=== PATIENT | male | born 1930 | race Caucasian/White ===

== ENCOUNTER 2019-02-23 11:03 | Inpatient (IN) | payer MEDICARE, OTHER ==
[~2019-02-23] VITALS: Ht 175.3 cm; Wt 75.3 kg
[2019-02-23] VITALS (21 sets, daily range): BP systolic 80–133; BP diastolic 32–75
--- NOTE | 2019-02-23 11:10 | NUR ---
ADAN, FROM [facility], CAME IN DUE TO ABNORMAL CHEST X-RAY AND FOR FURTHER EVAL. PATIENT RESPONSIVE TO STIMULI. ATTACHED TO THE LAYOUT TECHNICIAN. NEEDS ATTENDED. PATIENT WITH DELROY MIDLINE, DRESSING CHANGED VIA STERILE TECHNIQUE.
[2019-02-23] MEDS ORDERED: IV NS 0.9% 1,000 ML BAG IV ONE (11:30)
[2019-02-23 11:44] LABS: BASOPHILS # (AUTO) 0.1 /CMM (0.0-0.2); HEMOGLOBIN 7.7 g/dL (13.5-17.5); MEAN CORPUSCULAR HGB CONC 33 g/dl (31.0-36.0); MEAN CORPUSCULAR VOLUME 96 fL (80-96)
[2019-02-23 11:46] LABS: BASOPHILS % (AUTO) 0.7 % (0.0-2.0); EOSINOPHILS % (AUTO) 0.5 % (0.0-6.0); HEMATOCRIT 23 % (39-51); LYMPHOCYTES % (AUTO) 8.3 % (20.0-44.0); MONOCYTES # (AUTO) 1.7 /CMM (0.1-1.30); MONOCYTES % (AUTO) 14.4 % (2.0-12.0); NEUTROPHILS # (AUTO) 9.2 /CMM (1.8-8.9); NEUTROPHILS % (AUTO) 76.1 % (43.0-81.0); PLATELET COUNT (AUTO) 269 /CMM (150-450); RED BLOOD CELL COUNT(AUTO) 2.43 MIL/uL (4.5-6.0); WHITE BLOOD COUNT (AUTO) 12.1 K/uL (4.3-11.0)
[2019-02-23 12:03] LABS: CALCIUM, SERUM 8.1 mg/dL (8.5-10.1); CARBON DIOXIDE 23 mmol/L (21-32); CHLORIDE 99 mmol/L (98-107); CREATININE 2.9 mg/dL (0.6-1.3); GLUCOSE 149 mg/dL (74-106); POTASSIUM 5.1 mmol/L (3.5-5.1); SODIUM SERUM 134 mmol/L (136-145)
[2019-02-23 12:04] LABS: UREA NITROGEN, BLOOD 86 mg/dL (7-18)
[2019-02-23] MEDS ORDERED: DAPT350V IV (12:08)
[2019-02-23] MEDS ORDERED: CARV12.5 GT (12:08)
[2019-02-23] MEDS ORDERED: DOCU-141 GT (12:08)
[2019-02-23] MEDS ORDERED: ALBU2.5V13 IH ×2 (12:08)
[2019-02-23] MEDS ORDERED: DOXA2TAB GT (12:08)
[2019-02-23] MEDS ORDERED: DILT180C66 GT (12:08)
[2019-02-23] MEDS ORDERED: AZTR1VIA4 IJ (12:08)
[2019-02-23] MEDS ORDERED: CHLO473M3 MM (12:08)
[2019-02-23] MEDS ORDERED: ATOR10TA GT (12:08)
[2019-02-23] MEDS ORDERED: LIOT5TAB9 GT (12:09)
[2019-02-23] MEDS ORDERED: NA P133E RC (12:09)
[2019-02-23] MEDS ORDERED: LORA10TA7 GT (12:09)
[2019-02-23] MEDS ORDERED: MAGN400O6 GT (12:09)
[2019-02-23] MEDS ORDERED: DRON400T2 GT (12:09)
[2019-02-23] MEDS ORDERED: FERR325T23 GT (12:09)
[2019-02-23] MEDS ORDERED: LACT20SO4 GT (12:09)
[2019-02-23] MEDS ORDERED: BISA10SU61 RC (12:09)
[2019-02-23] MEDS ORDERED: FOLI1TAB16 GT (12:09)
[2019-02-23] MEDS ORDERED: INSU100V11 SQ (12:09)
[2019-02-23] MEDS ORDERED: LEVE500T9 GT (12:09)
[2019-02-23] MEDS ORDERED: MULT-447 PO (12:09)
[2019-02-23] MEDS ORDERED: LORA0.5T GT (12:09)
[2019-02-23] MEDS ORDERED: QUET25TA PO (12:13)
[2019-02-23] MEDS ORDERED: LANS15CA13 GT (12:13)
[2019-02-23] MEDS ORDERED: ASCO500T10 GT (12:13)
[2019-02-23] MEDS ORDERED: ZINC220C8 PO (12:13)
[2019-02-23] MEDS ORDERED: TRAM50TA2 PO (12:13)
[2019-02-23] MEDS ORDERED: FINA5TAB3 GT (12:13)
[2019-02-23] MEDS ORDERED: ONDA4TAB11 GT (12:13)
[2019-02-23] MEDS ORDERED: TYL2T GT ×2 (12:13)
[2019-02-23 12:16] LABS: ALANINE AMINOTRANSFERASE 28 U/L (12-78); ALBUMIN 1.8 g/dL (3.4-5.0); ALKALINE PHOSPHATASE 131 U/L (46-116); ASPARTATE AMINOTRANSFERASE 62 U/L (15-37); BILIRUBIN,DIRECT 0.1 mg/dL (0.0-0.2); BILIRUBIN,TOTAL 0.3 mg/dL (0.2-1.0); TOTAL PROTEIN, SERUM 7.9 g/dL (6.4-8.2)
[2019-02-23 12:40] LABS: B-TYPE NATRIURETIC PEPTIDE 44210 PG/ML (0-125)
--- NOTE | 2019-02-23 13:14 | NUR ---
[facility] PAGED
--- NOTE | 2019-02-23 13:16 | NUR ---
CALLED NURSING SUP FOR MEDSURG BED
--- NOTE | 2019-02-23 13:45 | NUR ---
DR. CELESTE AT BEDSIDE FOR EVAL.
[2019-02-23] MEDS ORDERED: ONDANSETRON HCL/PF 4 MG/2 ML VIAL IVP PRN (14:00)
[2019-02-23] MEDS ORDERED: LORAZEPAM 0.5 MG TABLET GT PRN (14:00)
[2019-02-23] MEDS ORDERED: ZOLPIDEM TARTRATE 5 MG TABLET PO PRN (14:00)
[2019-02-23] MEDS ORDERED: ALBUTEROL FS 2.5 MG/0.5 ML VIAL.NEB IH PRN (14:00)
[2019-02-23] MEDS ORDERED: ACETAMINOPHEN 325 MG TABLET PO PRN ×2 (14:00)
[2019-02-23] MEDS ORDERED: HYDROCODONE/APAP 5/325MG 1 EACH TABLET PO PRN (14:00)
[2019-02-23] MEDS ORDERED: ONDANSETRON 4 MG TAB.RAPDIS GT PRN (14:00)
[2019-02-23] MEDS ORDERED: MAG HYDROX/AL HYDROX/SIMETH 30 ML UDC PO PRN (14:00)
[2019-02-23] MEDS ORDERED: NA PHOS,M-B/NA PHOS,DI-BA 1 EA ENEMA RC PRN (14:00)
[2019-02-23] MEDS ORDERED: BISACODYL SUPP (10 MG) 10 MG/SUPP.RECT SUPP.RECT RC PRN (14:00)
[2019-02-23] MEDS ORDERED: MAGNESIUM HYDROXIDE 30 ML UDC PO PRN (14:00)
[2019-02-23] MEDS ORDERED: MAGNESIUM HYDROXIDE 30 ML UDC GT PRN (14:00)
[2019-02-23] MEDS ORDERED: TRAMADOL HCL 50 MG TABLET PO PRN (14:00)
[2019-02-23] MEDS ORDERED: Z GUARD REMEDY 2 OZ OINT TP PRN (14:00)
--- NOTE | 2019-02-23 14:02 | NUR ---
REPORT GIVEN TO KENAN BRAMBILA RN FOR SPENCER.
--- NOTE | 2019-02-23 14:29 | NUR ---
PATIENT TRANSFERRED TO MED SURG, PATIENT IN STABLE CONDITION. KEPT COMFORTABLE. ENDORSED TO CARYN ODEN FOR SPENCER.
[2019-02-23] MEDS ORDERED: LACTULOSE 10 G/15 ML UDC (PYXIS) GT PRN ×2 (14:30)
[2019-02-23] MEDS: CHLORHEXIDINE GLUCONATE 15 ML UDC MM SCH (15:24)
--- NOTE | 2019-02-23 15:39 | NUR ---
PER AKSHAT RUBIN AT 1535 CONSENT AND LABS PENDING FOR US GUIDED THORACENTESIS. WILL F/U TOMORROW
[2019-02-23] MEDS ORDERED: NUT.237L67 GT (15:40)
--- NOTE | 2019-02-23 15:40 | NUR ---
MS RN NOTES RECEIVED A CALL FROM [facility] SAID THAT THEY ARE UNABLE TO DO US GUIDED THORACENTESIS TODAY, THEY WILL DO IT TOMORROW . NOTIFIED DR SHEFFIELD MADE AWARE, SAID OK TO DO IT TOMORROW MORNING. CALLED JAMES LEDBETTER , PATIENTS PERSON TO NOTIFY ON FILE SAID TO CALL JACQUELYN JIMENEZ , PATIENT NEXT OF KIN TO GET CONSENT, CALLED JACQUELYN ,NO ANSWER, LEFT MESSAGE AND GAVE HOSPITAL CALL BACK NUMBER.
--- NOTE | 2019-02-23 16:30 | NUR ---
MS RN ADMITTING NOTES PATIENT ADMITTED FROM ER NONVERBAL, EYES OPEN BLINKS OCCASIONALLY, BLINKS EYES WHEN TOUCHED. ON T PIECE PORTEX #8, O2 AT LPM SATURATING AT 98-100%. GT TUBE INTACT. FUENTES CATHETER IN PLACE. RIGHT UPPER ARM MIDLINE PATENT AND INTACT. CARE RENDERED TO THE PATIENT. APPEARS COMFORTABLE. WILL CONTINUE TO MONITOR ACCORDINGLY.
[2019-02-23] MEDS: DRONEDARONE HYDROCHLORIDE 400 MG TABLET GT SCH (17:00)
[2019-02-23] MEDS: CARVEDILOL 12.5 MG TABLET GT SCH (17:00)
[2019-02-23] MEDS ORDERED: AZTREONAM 1 G in IV NS 0.9% 100 ML IV SCH (17:00)
[2019-02-23] MEDS: AZTREONAM 1 G in IV NS 0.9% 100 ML IV SCH (17:59)
--- NOTE | 2019-02-23 18:00 | NUR ---
MS RN NOTES HOLD multaq DUE TO DECREASE PULSE RATE.
[2019-02-23] MEDS: QUETIAPINE FUMARATE 25 MG TABLET PO SCH (18:02)
--- NOTE | 2019-02-23 18:07 | NUR ---
MS RN NOTES CYTOMEL NOT AVAILABLE ON THE FLOOR AT THIS TIME. SPOKE TO [facility] PHARMACIST WILL SEND OT TO THE FLOOR. WILL ADMINISTER ONCE AVAILABLE
[2019-02-23] MEDS: NEPRO 1,000 ML BOTTLE GT PRN (18:27)
--- NOTE | 2019-02-23 18:58 | NUR ---
MS RN NOTES CYTOMEL NOT AVAILABLE ON THE FLOOR AT THIS TIME YET. WILL ENDORSE TO NIGHT NURSE FOR ADMINISTRATION ONCE AVAILABLE.
[2019-02-23] MEDS: DAPTOMYCIN IV SCH (18:59)
[2019-02-23] MEDS: NS 0.9% IV SCH (18:59)
--- NOTE | 2019-02-23 19:00 | NUR ---
MS RN NOTES TUTU THOMAS PRESENT ON THE FLOOR NOTIFIED REGARDING PATIENT SHALLOW RESPIRATIONS, DR CELESTE SEEN PATIENT AT BEDSIDE TO EVALUATE. INSTRUCTED TO MONITOR RESPIRATORY RATE AND ENSURE PATIENT WAS BEING MONITORED ON CONTINUOUS PULSE OXIMETER 87-90%. ENDORSE TO NIGHT NURSE FOR CONTINUITY OF CARE.
--- NOTE | 2019-02-23 19:15 | NUR ---
RN NOTES: WALKED IN ROOM AND SAW PATIENT DESATURATING HIGH 70S LOW 80S. PT LOOKED VERY DIAPHORETIC. BLOOD SUGAR CHECKED. PT APPEARED TO BE IN AGONAL BREATHING ON T PIECE PORTEX #8 AT 15L. PT HAS DELROY MIDLINE. PT HAS GT NEPRO FEEDING STARTING AT 40ML/HR. BLOOD PRESSURE CHECKED AND WAS 81/35 HR 54. DECIDED TO CALL RAPID. Addendum: 02/23/19 at 2042 by STEVE RAINEY RN BP TRENDING DOWN 78/52 HR 42 Addendum: 02/23/19 at 2044 by STEVE RAINEY RN BLOOD SUGAR WAS 150. PLACED PATIENT ON COMBINATION WORKER FOR OBSERVATION.
--- NOTE | 2019-02-23 19:20 | NUR ---
RN NOTES: HONING MACHINE OPERATOR SEMIAUTOMATIC NURSE PRESENT, KERRY ; RTS AT BEDSIDE: CONNIE ROMAN VAHE, KEVIN. CALLED FOR BED FOR ICU TO BE TRANSFERRED. WARDROBE SPECIALIST, MARBELLA WONG. DR. CELESTE MADE AWARE AND OK TO TRANSFER AND TO CALL DR. RUSSELL FOR REST OF ORDERS.
[2019-02-23] MEDS ORDERED: IV NS 0.9% 500 ML IV ONE ×2 (19:30→20:00)
--- NOTE | 2019-02-23 19:30 | NUR ---
AKSHAT NOTES: PT TRANSFERRED TO ICU. Addendum: 02/24/19 at 0137 by STEVE RAINEY RN ICU NURSE AND RTS ACCOMPANIED PT TO TRANSFER WITH ARUNA.
[2019-02-23] MEDS ORDERED: NOREPINEPHRINE 4 MG/4 ML AMPUL IV ONE (19:49)
[2019-02-23] MEDS: ALBUTEROL FS 2.5 MG/0.5 ML VIAL.NEB IH SCH (19:53)
--- NOTE | 2019-02-23 19:59 | NUR ---
RT NOTE RAPID RESPONSE CALLED ON 3WEST DUE TO LOW SATURATION AND UNRESPONSIVE. USED AMBU BAG @ 100% TO TRANSFER PATIENT TO ICU. ABG DRAWN ON 100% AMBU BAG. @ 1940, PLACED PATIENT ON VENTILATOR WITH CURRENT SETTINGS OF AC 16, 500, 100%, NO PEEP DUE TO LOW BLOOD PRESSURE. PORTEX [address] AMBU BAG @ BEDSIDE. ALARMS ON AND AUDIBLE. VENT PLUGGED TO RED OUTLET. SX DONE, SMALL THICK YELLOW SECRETIONS NOTED. TRACH SECURED AND PATENT. WILL CONTINUE TO MONITOR. Addendum: 02/23/19 at 2005 by ANN HERNANDEZ RT Amended: Links added.
[2019-02-23] MEDS ORDERED: NOREPINEPHRINE 8 MG in IV D5W 500 ML IV PRN (20:00)
[2019-02-23] MEDS: LIOTHYRONINE SODIUM (5 MCG/TA 5 MCG TABLET GT SCH (20:26)
--- NOTE | 2019-02-23 20:30 | NUR ---
RN NOTES 19:35 PM - PATIENT CAME FROM [facility] TRANSFERRED VIA RAPID RESPONSE DUE TO LOW SATURATION, HYPOTENSION AND UNRESPONSIVE. TRANSFERRED USING AMBU BAG. ACCOMPANIED BY RT AND ICU CHARGE NURSE. PATIENT IS NON VERBAL WITH TRACH. CONNECTED TO FAMILY RESOURCE MANAGEMENT SPECIALIST REVEALS SB HR 44. NO ACUTE RESPIRATORY DISTRESS SATURATION 100% 1940 PM,- PATIENT WITH TRACH PORTEX # 8 PLACED PATIENT ON VENTILATOR BY RT WITH SETTINGS OF AC 16, 500, 100%, NO PEEP DUE TO LOW BLOOD PRESSURE. AMBU BAG @ BEDSIDE. SX W/ SMALL THICK YELLOW SECRETIONS. TRACH SECURED AND PATENT. IV SITE ON DELROY MIDLINE WITH ONGOING NS BOLUS INTACT AND PATENT. IV SITE ON LH STARTED GAUGE 20 WITH GOOD BLD. RETURN. WITH FUENTES CATH DRAINED WITH YELLOWISH COLOR URINE. OFF FROM THE FLOOR. KEPT PT CLEAN AND COMFORTABLE IN BED. WILL CONTINUE TO MONITOR.
[2019-02-23] MEDS: DILTIAZEM HCL CD 180 MG PO SCH (21:00)
--- NOTE | 2019-02-23 21:00 | NUR ---
RN NOTES LEVOPHED STOPPED , VSS WNL, WILL CONTINUE TO MONITOR.
--- NOTE | 2019-02-23 21:10 | NUR ---
RN NOTES RT CHANGE FIO2 TO 60%. PATIENT SATURATION REMAINED 100%
[2019-02-23] MEDS: LEVETIRACETAM SOL (5 ML) 100 MG/ML UDC GT SCH (21:24)
[2019-02-23] MEDS: ATORVASTATIN 10 MG TABLET GT SCH (21:24)
[2019-02-24] VITALS (47 sets, daily range): BP systolic 102–177; BP diastolic 35–137
[2019-02-24] MEDS: ALBUTEROL FS 2.5 MG/0.5 ML VIAL.NEB IH SCH ×4 (01:00→18:56)
[2019-02-24] MEDS: AZTREONAM 1 G in IV NS 0.9% 100 ML IV SCH ×3 (02:06→19:10)
[2019-02-24 04:49] LABS: BASOPHILS % (AUTO) 0.3 % (0.0-2.0); EOSINOPHILS % (AUTO) 0.1 % (0.0-6.0); HEMATOCRIT 24 % (39-51); HEMOGLOBIN 8.1 g/dL (13.5-17.5); LYMPHOCYTES # (AUTO) 1.3 /CMM (0.8-4.8); LYMPHOCYTES % (AUTO) 12.3 % (20.0-44.0); MEAN CORPUSCULAR HGB CONC 33 g/dl (31.0-36.0); MEAN CORPUSCULAR VOLUME 96 fL (80-96); MONOCYTES # (AUTO) 1.5 /CMM (0.1-1.30); MONOCYTES % (AUTO) 13.9 % (2.0-12.0); NEUTROPHILS % (AUTO) 73.4 % (43.0-81.0); PLATELET COUNT (AUTO) 260 /CMM (150-450); RED BLOOD CELL COUNT(AUTO) 2.53 MIL/uL (4.5-6.0); WHITE BLOOD COUNT (AUTO) 10.9 K/uL (4.3-11.0)
[2019-02-24] MEDS: DILTIAZEM HCL CD 180 MG PO SCH ×3 (05:00→20:58)
[2019-02-24 05:17] LABS: CALCIUM, SERUM 8.4 mg/dL (8.5-10.1); CARBON DIOXIDE 24 mmol/L (21-32); CHLORIDE 102 mmol/L (98-107); CHOLESTEROL 49 mg/dL (<200); GLUCOSE 96 mg/dL (74-106); HDL CHOLESTEROL 15 mg/dL (40-60); LDL 16 mg/dL (0-99); MAGNESIUM 2.8 mg/dL (1.8-2.4); PHOSPHORUS 5.9 mg/dL (2.5-4.9); POTASSIUM 5.5 mmol/L (3.5-5.1); SODIUM SERUM 136 mmol/L (136-145); TRIGLYCERIDES 144 mg/dL (30-150)
[2019-02-24 05:27] LABS: UREA NITROGEN, BLOOD 88 mg/dL (7-18)
--- NOTE | 2019-02-24 06:52 | NUR ---
RN NOTES PATIENT REMAINED IS MORE AWAKE, RESPONSE TO NAME, NON -VERBAL, ABLE TO MOVE UPPER EXT. NO SOB OR DISTRESS. TRACH AND VENT SETTING TOLERATED WELL ON AC 16 TV 500 FIO2 50% NO PEEP. SATURATION REMAINED 100%. AFEBRILE. VSS STABLE WITHOUT PRESSORS. NO FACIAL COMPLAINED OF PAIN. REMAINED SB LOWEST 44. ASYMPTOMATIC. IV SITE ON DELROY ML, LH G 20 AND INTACT AND PATENT AND FLUSHED WELL. GT LAMPED FOR NOW FOR POSS. THORACENTESIS TODAY. CONSENT DONE FOR THORACENTESIS. FUENTES CATH DRAINED WITH YELLOW COLOR URINE. OFF FROM THE FLOOR. KEPT PT CLEAN AND DRY. TURN AND REPOSITION Q2H AND PRN. OFFLOADED EXT WITH PILLOWS. ENDORSED CONTINUITY OF CARE TO AM NURSE.
--- NOTE | 2019-02-24 07:30 | NUR ---
PROOF READER INITIAL NOTE RECEIVED PATIENT NON-VERBAL OPENS EYES. VENT DEPENDENT. NO S/S OF PAIN OR DISCOMFORT. NO RESPIRATORY DISTRESS NOTED, WITH VENT SETTINGS AC 16, TV 500, FIO2 50%, PEEP 0. TRACH C/D/I. ON TELE MONITOR SINUS ESTRELLA. ABDOMEN SOFT NON-DISTENDED. WITH GT PATENT, INTACT, IN PLACE. CLAMPED AT THIS TIME. PENDING THORACENTESIS PROCEDURE. F/C PATENT, INTACT, DRAINING BY GRAVITY. HOB ELEVATED. TURNED AND REPOSITIONED. SIDE RAILS UP AND LOCKED. BED KEPT AT LOWEST POSITION. WILL CONTINUE TO MONITOR.
[2019-02-24] MEDS: LEVETIRACETAM SOL (5 ML) 100 MG/ML UDC GT SCH ×2 (08:16→20:57)
[2019-02-24] MEDS: ZINC SULFATE 220 MG CAPSULE PO SCH (08:18)
[2019-02-24] MEDS: MULTIVIT W/MINERALS 1 TAB TABLET PO SCH (08:19)
[2019-02-24] MEDS: CARVEDILOL 12.5 MG TABLET GT SCH ×2 (08:19→17:00)
[2019-02-24] MEDS: ACETAMINOPHEN 325 MG TABLET PO SCH (08:19)
[2019-02-24] MEDS: PANTOPRAZOLE 40 MG/PACK PACK GT SCH (08:20)
[2019-02-24] MEDS: ASCORBIC ACID 500 MG TABLET GT SCH (08:20)
[2019-02-24] MEDS: FINASTERIDE (5 MG) 5 MG TABLET GT SCH (08:20)
[2019-02-24] MEDS: LORATADINE 10 MG TABLET GT SCH (08:20)
[2019-02-24] MEDS: FERROUS SULFATE (325 MG) 325 MG/TAB TABLET GT SCH (08:20)
[2019-02-24] MEDS: DOCUSATE SODIUM 100 MG CAPSULE PO SCH (08:20)
[2019-02-24] MEDS: QUETIAPINE FUMARATE 25 MG TABLET PO SCH ×2 (08:20→17:54)
[2019-02-24] MEDS: CHLORHEXIDINE GLUCONATE 15 ML UDC MM SCH (08:21)
[2019-02-24] MEDS: DRONEDARONE HYDROCHLORIDE 400 MG TABLET GT SCH ×2 (08:31→17:00)
--- NOTE | 2019-02-24 08:31 | NUR ---
WOUND CARE CONSULT: PT PRESENTS WITH MULTIPLE WOUNDS INCLUDING STAGE 2 ULCER TO SACRUM, LEFT MIDBACK DEEP TISSUE INJURY IN EVOLUTION, LEFT HEEL INTACT DEEP TISSUE INJURY AND LEFT LATERAL KNEE INTACT DEEP TISSUE INJURY AND SKIN TEARS TO ARM, PRESENT ON ADMISSION. ALL WOUND CARE AND SKIN PROTECTION RECOMMENDATIONS MADE AND DISCUSSED WITH NURSING STAFF. FIRST STEP LOW AIRLOSS MATTRESS ON ORDER. PT IS COMBATIVE AT TIMES (PINCHING AND SLAPPING BEHAVIOR NOTED). PT IS VENT-DEPENDENT AND IMMOBILE OTHERWISE. WILL SEE PRN. ALFONSO IN AGREEMENT WITH PLAN OF CARE. Addendum: 02/24/[address]AGSDALE WNDNU Amended: Links added.
[2019-02-24] MEDS: FOLIC ACID 1 MG TABLET GT SCH (08:37)
[2019-02-24] MEDS: DOXAZOSIN MESYLATE (1 MG) 1 MG TABLET GT SCH (08:43)
[2019-02-24] MEDS ORDERED: AZTREONAM 1 G VIAL IV SCH (09:00)
[2019-02-24] MEDS: LIOTHYRONINE SODIUM (5 MCG/TA 5 MCG TABLET GT SCH ×2 (09:00→17:54)
--- NOTE | 2019-02-24 09:00 | NUR ---
ONCOLOGY NURSE NAVIGATOR NOTE SEE AND EXAMINED BY DR. CELESTE. INFORMED BP MEDICATIONS HELD AT THIS TIME.
--- NOTE | 2019-02-24 10:05 | NUR ---
PLODDER OPERATOR NOTE RADIOLOGIST AT BEDSIDE FOR US GUIDED THORACENTESIS
--- NOTE | 2019-02-24 10:15 | NUR ---
NOTCHER NOTE S/P THORACENTESIS. TOLERATED WELL. FLUID SENT TO LAB FOR CYTOLOGY.
[2019-02-24 13:44] LABS: APPEARANCE,URINE SL CLOUDY (CLEAR); BILIRUBIN,URINE NEGATIVE (NEGATIVE); BLOOD, URINE NEGATIVE Ery/uL (NEGATIVE); COLOR,URINE YELLOW (YELLOW); KETONES,URINE NEGATIVE (NEGATIVE); LEUKOCYTE ESTERASE ,URINE 2+ (NEGATIVE); NITRITE, URINE NEGATIVE (NEGATIVE); PROTEIN,URINE TRACE mg/dl (NEGATIVE); UGLUCOSE NEGATIVE (NEGATIVE); UROBILINOGEN,URINE 0.2 EU/dL (0.2)
[2019-02-24 13:49] LABS: BACTERIA,URINE Few /HPF (None Seen); RBC,URINE 0-2 /HPF (0-2); SQUAMOUS EPITHELIAL CELL,UR Rare /HPF (None Seen); YEAST,URINE Few /HPF (None Seen)
[2019-02-24 13:58] LABS: URINE TOTAL PROTEIN 86.5 mg/dL (0-11.9)
[2019-02-24] MEDS ORDERED: METRONIDAZOLE 500 MG TABLET GT SCH (14:00)
[2019-02-24 14:41] LABS: EOSINOPHIL,URINE Rare
[2019-02-24] MEDS: METRONIDAZOLE 500 MG TABLET GT SCH (15:51)
[2019-02-24 17:36] LABS: ABG BASE EXCESS -5.7 mmol/L; ABG PCO2 36.4 mmHg (35.0-45.0); ABG PH 7.345 (7.350-7.450); ABG PO2 128.6 mmHg (75.0-100.0); AaDO2 114.7 mmHg; COHb 0.4 % (0.5-1.5); MetHb 0.5 % (0.0-1.5); O2Hb 97.1 % (94.0-97.0); PEEP,BG 0 cm H2O; SITE, ABG Right Radial; VT, ABG 500 mL
--- NOTE | 2019-02-24 17:55 | NUR ---
EQUIPMENT CLEANER AND TESTER NOTE SPOKE WITH PHARMACY REGARDING MISSING ANTIBIOTICS DUE AT THIS TIME. THEY WILL SEND ABLE.
--- NOTE | 2019-02-24 19:00 | NUR ---
RECEIVED PATIENT AWAKE,ALERT,WITH TRACHEOSTOMY TO THE VENTILATOR ON AC MODE,NOT IN ANY DISTRESS ,BREATHING REGULAR AND NON LABORED.,WITH COPIOUS AMOUNT OF THICK ,CLEAR SECRETIONS AT STOMA SITE. NOTED TO BE BRADYCARDIAC IN THE 40'S BUT BP STABLE.,WILL CLOSELY MONITOR V/S. SKIN VERY DRY AND FRAGILE,PATIENT MOVING UPPER EXTREMITIES A LOT,ABLE TO MOVE AND LIFT BOTH ARMS. WITH ON GOING FEEDING VIA G TUBE,ABDOMEN NOTED TO BE A LITTLE DISTENDED BUT NON TENDER. WILL CLOSELY MONITOR, ASPIRATION PRECAUTION IMPLEMENTED.COMFORT CARE DONE,NEEDS ATTENDED.
[2019-02-24] MEDS: NS 0.9% IV SCH (19:10)
[2019-02-24] MEDS: DAPTOMYCIN IV SCH (19:10)
--- NOTE | 2019-02-24 19:22 | NUR ---
DIRECTOR OF PULMONARY UNIT CLOSING NOTE PATIENT RESTING COMFORTABLY. NO RESPIRATORY DISTRESS AT THIS TIME. TOLERATED VENT SETTINGS AC 16, TV 500, FIO2 30%, PEEP 0. GT PATENT, INTACT, MINIMAL RESIDUAL NOTED. F/C PATENT, INTACT, DRAINING. NO SIGN OF BLEEDING AT THORACENTESIS SITE. NO S/S OF PAIN OR DISCOMFORT. KEPT CLEAN AND DRY. TURNED AND REPOSITIONED. KCI MATTRESS PLACED. WOUND TX PROVIDED. ALL NEEDS ANTICIPATED AND MET. HOB ELEVATED. SIDE RAILS UP AND LOCKED. BED KEPT AT LOWEST POSITION. CONTINUITY OF CARE ENDORSED TO PM NURSE.
[2019-02-24] MEDS: ATORVASTATIN 10 MG TABLET GT SCH (21:00)
--- NOTE | 2019-02-24 22:00 | NUR ---
STABLE,NOT IN ANY DISTRESS,ASLEEP BUT EASILY RESPONSIVE,FIGHTS BACK/UNCOOPERATIVE.
[2019-02-25] VITALS (30 sets, daily range): BP systolic 98–150; BP diastolic 40–87
--- NOTE | 2019-02-25 | NUR ---
REMAIN STABLE,AWAKE,ALERT,BUT NOT FOLLOWING COMMANDS,NOT IN ANY DISTRESS.COMFORT CARE DONE .
[2019-02-25] MEDS: METRONIDAZOLE 500 MG TABLET GT SCH ×3 (00:25→15:31)
[2019-02-25] MEDS: AZTREONAM 1 G in IV NS 0.9% 100 ML IV SCH ×3 (00:26→17:06)
[2019-02-25] MEDS: ALBUTEROL FS 2.5 MG/0.5 ML VIAL.NEB IH SCH ×4 (01:45→19:43)
--- NOTE | 2019-02-25 02:00 | NUR ---
AM BATH DONE,SACRAL PRESSURE INJURY CARE DONE. REMAINS STABLE,NOT IN DISTRESS,REMAINS AWAKE,ALERT.TOLERATING TUBE FEEDING.STILL WITH CLEAR COPIOUS SECRETIONS AROUND THE STOMA BUT NOT MUCH SECRETIONS FROM THE TRACHE.
--- NOTE | 2019-02-25 03:43 | NUR ---
PATIENT RECEIVED ON TRACH TO VENT WITH SETTINGS OF AC 16, 500 VT, 30%, +0. SUCTIONED WITH LAVAGE FOR MINIMAL, THIN, YELLOW, SECRETIONS. GIVEN IN-LINE TREATMENTS WITH NO ADVERSE REACTIONS. AMBU BAG AT BEDSIDE. VENT ALARM AUDIBLE AND VISIBLE. Addendum: 02/25/19 at 0344 by PRIMITIVO TRUJILLO RT Amended: Links added.
--- NOTE | 2019-02-25 04:00 | NUR ---
REMAINS STABLE,AWAKE,ALERT,NOT IN ANY DISTRESS JOSE M BRADYCARDIC IN THE 50'S BUT BP STABLE.
[2019-02-25 04:07] LABS: BASOPHILS # (AUTO) 0.1 /CMM (0.0-0.2); BASOPHILS % (AUTO) 0.7 % (0.0-2.0); HEMATOCRIT 24 % (39-51); HEMOGLOBIN 8.1 g/dL (13.5-17.5); LYMPHOCYTES # (AUTO) 0.9 /CMM (0.8-4.8); LYMPHOCYTES % (AUTO) 10.4 % (20.0-44.0); MEAN CORPUSCULAR HGB CONC 34 g/dl (31.0-36.0); MEAN CORPUSCULAR VOLUME 96 fL (80-96); MONOCYTES # (AUTO) 1.5 /CMM (0.1-1.30); MONOCYTES % (AUTO) 16.2 % (2.0-12.0); NEUTROPHILS # (AUTO) 6.5 /CMM (1.8-8.9); NEUTROPHILS % (AUTO) 70.7 % (43.0-81.0); PLATELET COUNT (AUTO) 258 /CMM (150-450); WHITE BLOOD COUNT (AUTO) 9.1 K/uL (4.3-11.0)
[2019-02-25 04:24] LABS: ALANINE AMINOTRANSFERASE 32 U/L (12-78); ALBUMIN 1.6 g/dL (3.4-5.0); ALKALINE PHOSPHATASE 123 U/L (46-116); ASPARTATE AMINOTRANSFERASE 48 U/L (15-37); BILIRUBIN,TOTAL 0.2 mg/dL (0.2-1.0); CALCIUM, SERUM 8.2 mg/dL (8.5-10.1); CARBON DIOXIDE 23 mmol/L (21-32); CHLORIDE 104 mmol/L (98-107); CREATININE 2.9 mg/dL (0.6-1.3); GLUCOSE 131 mg/dL (74-106); POTASSIUM 4.8 mmol/L (3.5-5.1); SODIUM SERUM 137 mmol/L (136-145); TOTAL PROTEIN, SERUM 7.2 g/dL (6.4-8.2)
[2019-02-25 04:33] LABS: UREA NITROGEN, BLOOD 93 mg/dL (7-18)
[2019-02-25 04:34] LABS: CREATINE KINASE, TOTAL 23 U/L (39-308)
[2019-02-25] MEDS: DILTIAZEM HCL CD 180 MG PO SCH ×3 (05:00→21:00)
--- NOTE | 2019-02-25 05:18 | NUR ---
TRACHE CARE DONE, STILL WITH COPIOUS CLEAR SECRETIONS AROUND STOMA.
[2019-02-25] MEDS: NEPRO 1,000 ML BOTTLE GT PRN (05:54)
--- NOTE | 2019-02-25 07:00 | NUR ---
REMAINS STABLE,NOT IN ANY DISTRESS,REMAINS AWAKE,ALERT.REPORT GIVEN TO MICHAEL RN.
--- NOTE | 2019-02-25 07:56 | NUR ---
RT PATIENT REC'D TRACHED ON [facility] VENT WITH ORDERED SETTINGS FARZANEH WELL. VENT ALARMS CHECKED + AUDIBLE. CUFF PRESSURE CHECKED SUPERVISOR TELEVISION CHASSIS REPAIR. PATIENT SUCTIONED WITH MOD AMT PALE SEMITHICK SECRETIONS. PATIENT AWAKE, RESPONSIVE, NO SOB NOTED. AMBU BAG AT HOB Addendum: 02/25/19 at 0859 by STEPHANIE ROLLINS RT Amended: Links added.
--- NOTE | 2019-02-25 08:00 | NUR ---
ICU/RN INITIAL NOTES,AM RECEIVED BEDSIDE REPORT FROM NIGHT NURSE. PT OPENS EYES, SOMETIMES FOLLOWS COMMANDS, ON VENT SETTINGS VIA TRACH PER MD ORDERS. TOLERATING WELL, NO DISTRESS NOTED. TUBE FEEDING INFUSING, TOLERATING WELL. MIDLINE PATENT AND INTACT, NO S/S OF INFECTION OR INFILTRATION NOTED. FUENTES CATH IN PLACE, DRAINING YELLOW URINE. ALL NEEDS WILL BE ATTENDED TO, SAFETY MEASURES TAKEN, BED IN LOW POSITION, SIDE RAILS UP, CALL LIGHT WITHIN REACH.
[2019-02-25] MEDS: CHLORHEXIDINE GLUCONATE 15 ML UDC MM SCH (08:42)
[2019-02-25] MEDS: ZINC SULFATE 220 MG CAPSULE PO SCH (08:43)
[2019-02-25] MEDS: LEVETIRACETAM SOL (5 ML) 100 MG/ML UDC GT SCH ×2 (08:43→21:01)
[2019-02-25] MEDS: LIOTHYRONINE SODIUM (5 MCG/TA 5 MCG TABLET GT SCH ×2 (08:43→17:06)
[2019-02-25] MEDS: DRONEDARONE HYDROCHLORIDE 400 MG TABLET GT SCH ×2 (08:43→17:06)
[2019-02-25] MEDS: LORATADINE 10 MG TABLET GT SCH (08:43)
[2019-02-25] MEDS: FERROUS SULFATE (325 MG) 325 MG/TAB TABLET GT SCH (08:44)
[2019-02-25] MEDS: DOXAZOSIN MESYLATE (1 MG) 1 MG TABLET GT SCH (08:44)
[2019-02-25] MEDS: FINASTERIDE (5 MG) 5 MG TABLET GT SCH (08:45)
[2019-02-25] MEDS: DOCUSATE SODIUM 100 MG CAPSULE PO SCH (08:45)
[2019-02-25] MEDS: QUETIAPINE FUMARATE 25 MG TABLET PO SCH ×2 (08:45→17:06)
[2019-02-25] MEDS: FOLIC ACID 1 MG TABLET GT SCH (08:45)
[2019-02-25] MEDS: ASCORBIC ACID 500 MG TABLET GT SCH (08:45)
[2019-02-25] MEDS: MULTIVIT W/MINERALS 1 TAB TABLET PO SCH (08:45)
[2019-02-25] MEDS: PANTOPRAZOLE 40 MG/PACK PACK GT SCH (08:45)
[2019-02-25] MEDS: ACETAMINOPHEN 325 MG TABLET PO SCH (08:46)
[2019-02-25] MEDS: CARVEDILOL 12.5 MG TABLET GT SCH ×2 (08:47→17:00)
--- NOTE | 2019-02-25 10:02 | NUR ---
RT PER MD ORDER PATIENT PLACED ON CPAP MODE TOLERATING WELL. VENT ALARMS CHECKED + AUDIBLE. Addendum: 02/25/19 at 1003 by STEPHANIE ROLLINS RT Amended: Links added.
--- NOTE | 2019-02-25 10:10 | NUR ---
ICU/RN: PER MD ORDERS, PT PLACED ON CPAP MODE. TOLERATING WELL, NO DISTRESS. WILL CONTINUE TO MONITOR
--- NOTE | 2019-02-25 18:37 | NUR ---
ICU/RN: URINE SPECIMEN SENT TO LAB
[2019-02-25 18:43] LABS: APPEARANCE,URINE CLEAR (CLEAR); BILIRUBIN,URINE NEGATIVE (NEGATIVE); BLOOD, URINE NEGATIVE Ery/uL (NEGATIVE); COLOR,URINE YELLOW (YELLOW); KETONES,URINE NEGATIVE (NEGATIVE); LEUKOCYTE ESTERASE ,URINE 1+ (NEGATIVE); NITRITE, URINE NEGATIVE (NEGATIVE); PH,URINE 5.5 (5.0-8.0); PROTEIN,URINE NEGATIVE (NEGATIVE); UGLUCOSE NEGATIVE (NEGATIVE); UROBILINOGEN,URINE 0.2 EU/dL (0.2)
--- NOTE | 2019-02-25 18:45 | NUR ---
ICU/RN: CALLED PHARMACY REGARDING 1800 DAPTOMYCIN. THEY SAID THEY ARE IN THE PROCESS OF MIXING IT. WILL ENDORSE TO NIGHT NURSE TO ADMIN. DUE TO UNAVAILABILITY.
[2019-02-25 19:04] LABS: RBC,URINE 0-2 /HPF (0-2)
[2019-02-25 19:05] LABS: SQUAMOUS EPITHELIAL CELL,UR Rare /HPF (None Seen); YEAST,URINE Few /HPF (None Seen)
[2019-02-25 19:06] LABS: MUCUS,URINE Few /LPF (None Seen); URINE AMORPHOUS URATE Moderate /HPF (None Seen)
--- NOTE | 2019-02-25 19:09 | NUR ---
ICU/RN ENDING NOTES,AM REPORT ENDORSED TO NIGHT NURSE. PT FOLLOWS SOME SIMPLE COMMANDS. ON CPAP, NO DISTRESS. VSS. ALL NEEDS ATTENDED TO, SAFETY MEASURES TAKEN, BED IN LOW POSITION, SIDE RAILS UP. ENDORSED REPORT FOR SPENCER.
[2019-02-25 19:18] LABS: BACTERIA,URINE None seen /HPF (None Seen); EOSINOPHIL,URINE None Seen
[2019-02-25] MEDS: NS 0.9% IV SCH (19:33)
[2019-02-25] MEDS: DAPTOMYCIN IV SCH (19:33)
--- NOTE | 2019-02-25 19:43 | NUR ---
PATIENT REC'D TRACHED ON [facility] VENT WITH ORDERED SETTINGS FARZANEH WELL. VENT ALARMS CHECKED AND AUDIBLE. CUFF PRESSURE CHECKED CASH MANAGEMENT OFFICER. Q6 BREATHING TX GIVEN PER MD'S ORDER . NO ADVERSE REACTION NOTED.PATIENT SUCTIONED WITH MOD AMT OF WHITE THICK SECRETIONS. PATIENT AWAKE, RESPONSIVE, NO SOB NOTED. AMBU BAG AT [facility]. WILL CONTINUE TO MONITOR THE PT.
--- NOTE | 2019-02-25 20:00 | NUR ---
Received patient resting open eyes occasionally,non verbal.Follows simple commands. Patient at times combative.VS stable.SB 40's-50's.With CPAP on prescribed settings and tolerating well.SPO2 100%.GT feeding in progress residual minimal.HOB elevated. FC to gravity.No distress noted.Turned and repositioned.Continue monitoring.
[2019-02-25] MEDS: ATORVASTATIN 10 MG TABLET GT SCH (21:02)
[2019-02-26] VITALS (29 sets, daily range): BP systolic 103–147; BP diastolic 39–60
--- NOTE | 2019-02-26 | NUR ---
Patient resting.VS remains stable.Tolerating gt feeding.Turned and repositioned.No distress noted.
[2019-02-26] MEDS: METRONIDAZOLE 500 MG TABLET GT SCH ×2 (00:27→08:09)
[2019-02-26] MEDS: AZTREONAM 1 G in IV NS 0.9% 100 ML IV SCH ×2 (00:31→08:08)
[2019-02-26] MEDS: ALBUTEROL FS 2.5 MG/0.5 ML VIAL.NEB IH SCH ×4 (01:41→19:59)
[2019-02-26 04:11] LABS: BASOPHILS # (AUTO) 0.1 /CMM (0.0-0.2); BASOPHILS % (AUTO) 0.8 % (0.0-2.0); EOSINOPHILS % (AUTO) 3.8 % (0.0-6.0); HEMATOCRIT 24 % (39-51); HEMOGLOBIN 8.2 g/dL (13.5-17.5); LYMPHOCYTES # (AUTO) 1.2 /CMM (0.8-4.8); LYMPHOCYTES % (AUTO) 12.6 % (20.0-44.0); MEAN CORPUSCULAR HGB CONC 34 g/dl (31.0-36.0); MEAN CORPUSCULAR VOLUME 97 fL (80-96); MONOCYTES # (AUTO) 1.3 /CMM (0.1-1.30); MONOCYTES % (AUTO) 13.9 % (2.0-12.0); NEUTROPHILS # (AUTO) 6.3 /CMM (1.8-8.9); NEUTROPHILS % (AUTO) 68.9 % (43.0-81.0); PLATELET COUNT (AUTO) 258 /CMM (150-450); RED BLOOD CELL COUNT(AUTO) 2.48 MIL/uL (4.5-6.0); WHITE BLOOD COUNT (AUTO) 9.1 K/uL (4.3-11.0)
[2019-02-26 04:28] LABS: CALCIUM, SERUM 8.2 mg/dL (8.5-10.1); CARBON DIOXIDE 24 mmol/L (21-32); CHLORIDE 107 mmol/L (98-107); CREATININE 2.4 mg/dL (0.6-1.3); GLUCOSE 136 mg/dL (74-106); POTASSIUM 4.5 mmol/L (3.5-5.1); SODIUM SERUM 141 mmol/L (136-145)
[2019-02-26 04:29] LABS: UREA NITROGEN, BLOOD 89 mg/dL (7-18)
[2019-02-26] MEDS: DILTIAZEM HCL CD 180 MG PO SCH ×3 (05:00→13:31)
--- NOTE | 2019-02-26 06:30 | NUR ---
Patient resting.vs stable.Bathed and complete linens changed.Secretions suctioned. Turned and repositioned.No significant change noted on patient status.All needs anticipated and met.
--- NOTE | 2019-02-26 07:15 | NUR ---
RN INITIAL NOTES RECEIVED PT AWAKE, OPEN EYES ON VERBAL AND TACTILE STIMULI. TRACH IN PLACE. ON VENT, TOLERATING CPAP WELL. NO RESPIRATORY DISTRESS NOTED. NO SOB NOTED. DENIES ANY PAIN. DELROY MIDLINE IN PLACE. GT IN PLACE. TOLERATING GTF WELL. NO RESIDUAL NOTED. BLE ELEVATED. PT COMFORTABLE. WILL MONITOR.
[2019-02-26] MEDS: LEVETIRACETAM SOL (5 ML) 100 MG/ML UDC GT SCH ×2 (08:08→21:08)
[2019-02-26] MEDS: CHLORHEXIDINE GLUCONATE 15 ML UDC MM SCH (08:08)
[2019-02-26] MEDS: FOLIC ACID 1 MG TABLET GT SCH (08:09)
[2019-02-26] MEDS: ZINC SULFATE 220 MG CAPSULE PO SCH (08:09)
[2019-02-26] MEDS: FERROUS SULFATE (325 MG) 325 MG/TAB TABLET GT SCH (08:09)
[2019-02-26] MEDS: PANTOPRAZOLE 40 MG/PACK PACK GT SCH (08:09)
[2019-02-26] MEDS: ASCORBIC ACID 500 MG TABLET GT SCH (08:09)
[2019-02-26] MEDS: DRONEDARONE HYDROCHLORIDE 400 MG TABLET GT SCH ×2 (08:09→16:42)
[2019-02-26] MEDS: LIOTHYRONINE SODIUM (5 MCG/TA 5 MCG TABLET GT SCH ×2 (08:09→16:42)
[2019-02-26] MEDS: MULTIVIT W/MINERALS 1 TAB TABLET PO SCH (08:09)
[2019-02-26] MEDS: QUETIAPINE FUMARATE 25 MG TABLET PO SCH ×2 (08:09→16:42)
[2019-02-26] MEDS: DOCUSATE SODIUM 100 MG CAPSULE PO SCH (08:09)
[2019-02-26] MEDS: DOXAZOSIN MESYLATE (1 MG) 1 MG TABLET GT SCH (08:09)
[2019-02-26] MEDS: LORATADINE 10 MG TABLET GT SCH (08:09)
[2019-02-26] MEDS: ACETAMINOPHEN 325 MG TABLET PO SCH (08:10)
[2019-02-26] MEDS: FINASTERIDE (5 MG) 5 MG TABLET GT SCH (08:10)
[2019-02-26] MEDS: CARVEDILOL 12.5 MG TABLET GT SCH ×2 (08:10→16:42)
--- NOTE | 2019-02-26 09:00 | NUR ---
REHABILITATION TEACHER pt.is awake, can open eyes spont., no eyes contact, unable to follow commands, uncooperative, no risk for self-extubation by report, no grimacing, O2sat. over 96%, suctioned well, tolerated well for CPAP by report, SB 50-60, SBP over 100, below 150, GTF residual 25ml now, keep HOB over 40, no critical lab issues
--- NOTE | 2019-02-26 09:30 | NUR ---
SENIOR ADVISOR: Navid/Dione PIVL #24 is occluded, removed
--- NOTE | 2019-02-26 10:45 | NUR ---
SALES RESEARCH ANALYST: pt.is on cool aerosol TT 28% 5L, ABG done, tolerated well
[2019-02-26 10:52] LABS: ABG OXYGEN SATURATION 95.4 % (92.0-98.5); ABG PCO2 38.8 mmHg (35.0-45.0); ABG PH 7.354 (7.350-7.450); AaDO2 71.9 mmHg; COHb 0.8 % (0.5-1.5); MetHb 0.9 % (0.0-1.5); O2Hb 93.8 % (94.0-97.0); SITE, ABG Left Radial; VENT MODE, BG 5L CA 28%
--- NOTE | 2019-02-26 11:00 | NUR ---
RT PT TAKEN OFF VENT PER MD ORDERS FARZANEH WELL
[2019-02-26 11:07] LABS: *SPE A/G RATIO 0.5 (0.7-1.7); *SPE ALBUMIN 2.4 g/dL (2.9-4.4); *SPE ALPHA-1-GLOBULIN 0.4 g/dL (0.0-0.4); *SPE ALPHA-2-GLOBULIN 0.9 g/dL (0.4-1.0); *SPE GLOBULIN, TOTAL 4.4 g/dL (2.2-3.9); *SPE M-SPIKE 0.4 g/dL (Not Observed)
--- NOTE | 2019-02-26 11:30 | NUR ---
TRANSMITTER TESTER: is in room/updated with pt.current condition, VS, I/O, labs, meds, see new orders
[2019-02-26] MEDS: NEPRO 1,000 ML BOTTLE GT PRN (11:48)
[2019-02-26] MEDS ORDERED: FEE PK DOSING 1 MIN EA MC ONE (11:54)
[2019-02-26] MEDS ORDERED: VANCOMYCIN 1 GM in IV D5W 250 ML IV SCH (12:00)
[2019-02-26] MEDS ORDERED: MEROPENEM 500 MG in IV NS 0.9% 50 ML IV ONE (13:00)
--- NOTE | 2019-02-26 17:03 | NUR ---
WEB DESIGN INTERN: pt.is awake, uncooperative, rest, weak, SB 54-58, SBP over 100, O2sat. over 96% on T-piece cool aerosol, tolerated well, suctioned well, all wounds/PM/bedbath care done, got DAVID room/called to DAVID for report, request to get report was sent to [facility]
--- NOTE | 2019-02-26 17:30 | NUR ---
NETWORK PRICING CONSULTANT: pt.was transferred to DAVID after full report for DAVID nurse, included need to report tomorrow: L.wrist soft tissue little flexible capsulated mass under skin, L.hand PIVL HL was removed d/t resistance with NS flushing, pt.is suctioned well, O2sat.98-100% now
--- NOTE | 2019-02-26 18:13 | NUR ---
RT TRANSFERED PT FROM ICU TO 1ST FLOOR ON CA 5L 28% SP02 . 92% TRACH INTACT AND SECURED AMBU BAG AND SPARE TRACH AT HOB
--- NOTE | 2019-02-26 18:50 | NUR ---
RN CLOSING NOTES PT BROUGHT ONTO UNIT AT 1735. PT IS SLEEPING IN BED IN SEMI RIVAS POSITION WITH HOB ELEVATED TO 45 DEGREES. G-TUBE RUNNING NEPRO AT 40 MLS/HR AND IS TOLERATING FEEDING. NO APPARENT DISTRESS NOTED. WILL ENDORSE CONTINUATION OF CARE TO DIRECTOR TECHNICAL RN.
[2019-02-26] MEDS: DILTIAZEM HCL 30 MG TABLET GT SCH (21:05)
[2019-02-26] MEDS: ATORVASTATIN 10 MG TABLET GT SCH (21:10)
[2019-02-27] VITALS: BP 140/53
[2019-02-27] MEDS: MEROPENEM 500 MG in IV NS 0.9% 100 ML IV SCH ×2 (01:46→13:11)
[2019-02-27] MEDS: ALBUTEROL FS 2.5 MG/0.5 ML VIAL.NEB IH SCH ×4 (01:50→19:20)
[2019-02-27 04:00] VITALS: BP 146/57
[2019-02-27] MEDS: DILTIAZEM HCL 30 MG TABLET GT SCH ×3 (05:16→21:00)
--- NOTE | 2019-02-27 06:55 | NUR ---
RN NOTES DESATS TO 85-88% ON 28%FIO2; LOW 90'S ON 40% EVEN AFTER SUCTIONING. RT AT BEDSIDE RECOMMENDED ABG. SENT MESSAGE TO DR. RUSSELL. Addendum: 02/27/19 at 0701 by CATHY TYLER RN MD with orders noted and carried out. RT aware
--- NOTE | 2019-02-27 07:20 | NUR ---
DAVID INITIAL NOTES Rec'd pt in respiratory distress, O2 sat at 84% while on C/A 40%. Pt is lethargic. SB on telemonitor w/ HR 44 bpm. GT clamped at this time. FC draining to yellowish UOP. RT to draw STAT ABG. Safety precaution in place w/ bed in lowest & locked pos. Call light placed w/in reach. 0723 HR dropped to 31bpm. BP 89/46. Ambu bagging done. RT at bedside. Placed back on MV AC mode at this time for respiratory support. Placed on cont pulse ox monitoring. Will continue to monitor & attend pt needs.
--- NOTE | 2019-02-27 07:30 | NUR ---
RN NOTES PATIENT IN BED, NOTED WITH CHANGE OF CONDITION AT ABOUT 0620, NOTED BREATHING DEEP AND SLOW. O2 SAT WAS GOING DOWN TO 85'S. SUCTION LARGE AMOUNT OF SEMI LOOSE YELLOWISH SECRETION. HEAD OF BED ELEVATED. INCREASED 02, STIL O2SAT DID NOT CHANGED. CALLED RT TO EVALUATE AND TREAT. GOT ORDER FOR ABG. ENDORSE TO AM SHIFT FOR CONTINUITY OF CARE.
--- NOTE | 2019-02-27 07:37 | NUR ---
pt. placed back on the vent due to increased WOB. with previous parameters below as order: ac 16 vt 500 fio2 40% peep +5 vent is plugged into red outlet with alarms is on and functioning. jeaneth @ bedside. Addendum: 02/27/19 at 0739 by SIM CAMPBELL RT Amended: Links added.
[2019-02-27 08:00] VITALS: BP_SYST 90; BP_DIAS 46; BP_DIAS 48
[2019-02-27 08:06] LABS: BASOPHILS # (AUTO) 0.1 /CMM (0.0-0.2); BASOPHILS % (AUTO) 0.8 % (0.0-2.0); EOSINOPHILS % (AUTO) 6.3 % (0.0-6.0); HEMATOCRIT 28 % (39-51); HEMOGLOBIN 9.5 g/dL (13.5-17.5); LYMPHOCYTES # (AUTO) 2.4 /CMM (0.8-4.8); LYMPHOCYTES % (AUTO) 21.6 % (20.0-44.0); MEAN CORPUSCULAR HGB CONC 34 g/dl (31.0-36.0); MEAN CORPUSCULAR VOLUME 99 fL (80-96); MONOCYTES # (AUTO) 1.8 /CMM (0.1-1.30); MONOCYTES % (AUTO) 16.4 % (2.0-12.0); NEUTROPHILS % (AUTO) 54.9 % (43.0-81.0); PLATELET COUNT (AUTO) 342 /CMM (150-450); RED BLOOD CELL COUNT(AUTO) 2.86 MIL/uL (4.5-6.0); WHITE BLOOD COUNT (AUTO) 10.9 K/uL (4.3-11.0)
[2019-02-27 08:21] LABS: CALCIUM, SERUM 8.4 mg/dL (8.5-10.1); CARBON DIOXIDE 26 mmol/L (21-32); CHLORIDE 110 mmol/L (98-107); CREATININE 2.1 mg/dL (0.6-1.3); GLUCOSE 159 mg/dL (74-106); POTASSIUM 4.7 mmol/L (3.5-5.1); SODIUM SERUM 144 mmol/L (136-145)
[2019-02-27 08:30] LABS: ABG BASE EXCESS -7.4 mmol/L; ABG OXYGEN SATURATION 59.6 % (92.0-98.5); ABG PCO2 89.5 mmHg (35.0-45.0); ABG PH 7.047 (7.350-7.450); ABG PO2 42.8 mmHg (75.0-100.0); AaDO2 139.5 mmHg; COHb 0.5 % (0.5-1.5); MetHb 0.6 % (0.0-1.5); O2Hb 58.9 % (94.0-97.0); SITE, ABG Right Radial; VENT MODE, BG 40% COOL AEROSOL
[2019-02-27 08:41] LABS: UREA NITROGEN, BLOOD 80 mg/dL (7-18)
--- NOTE | 2019-02-27 08:45 | NUR ---
Pt seen & examined by Dr. Martinez, updated about pt condition & status.
[2019-02-27] MEDS: CARVEDILOL 12.5 MG TABLET GT SCH ×2 (08:50→16:16)
[2019-02-27] MEDS: DOXAZOSIN MESYLATE (1 MG) 1 MG TABLET GT SCH (08:50)
[2019-02-27] MEDS: CHLORHEXIDINE GLUCONATE 15 ML UDC MM SCH (08:54)
[2019-02-27] MEDS: ASCORBIC ACID 500 MG TABLET GT SCH (08:55)
[2019-02-27] MEDS: ACETAMINOPHEN 325 MG TABLET PO SCH (08:55)
[2019-02-27] MEDS: FERROUS SULFATE (325 MG) 325 MG/TAB TABLET GT SCH (08:55)
[2019-02-27] MEDS: FOLIC ACID 1 MG TABLET GT SCH (08:55)
[2019-02-27] MEDS: FINASTERIDE (5 MG) 5 MG TABLET GT SCH (08:55)
[2019-02-27] MEDS: DOCUSATE SODIUM 100 MG CAPSULE PO SCH (08:55)
[2019-02-27] MEDS: LEVETIRACETAM SOL (5 ML) 100 MG/ML UDC GT SCH ×2 (08:55→21:12)
[2019-02-27] MEDS: LORATADINE 10 MG TABLET GT SCH (08:59)
[2019-02-27] MEDS: ZINC SULFATE 220 MG CAPSULE PO SCH (08:59)
[2019-02-27] MEDS: MULTIVIT W/MINERALS 1 TAB TABLET PO SCH (08:59)
[2019-02-27] MEDS: QUETIAPINE FUMARATE 25 MG TABLET PO SCH ×2 (08:59→16:16)
[2019-02-27] MEDS: DRONEDARONE HYDROCHLORIDE 400 MG TABLET GT SCH ×2 (09:05→16:16)
[2019-02-27] MEDS: PANTOPRAZOLE 40 MG/PACK PACK GT SCH (09:05)
--- NOTE | 2019-02-27 09:17 | NUR ---
Fio2 decreased from 40% to 30% due to spo2 100% Addendum: 02/27/19 at 0918 by SUJATHA YUN RT Amended: Links added.
[2019-02-27] MEDS: LIOTHYRONINE SODIUM (5 MCG/TA 5 MCG TABLET GT SCH ×2 (10:31→16:15)
--- NOTE | 2019-02-27 11:30 | NUR ---
Pt seen & examined by Dr. Parker, updated about pt status.
[2019-02-27 12:00] VITALS: BP 110/64
--- NOTE | 2019-02-27 14:30 | NUR ---
Pt seen & examined by Dr. Mathew, updated about pt status.
[2019-02-27] MEDS: VANCOMYCIN 1 GM in IV D5W 250 ML IV SCH (15:49)
[2019-02-27 16:00] VITALS: BP 99/44
[2019-02-27] MEDS: LACTOBACILLUS RHAMNOSUS GG 1 EACH CAP.SPRINK PO SCH (16:16)
--- NOTE | 2019-02-27 18:30 | NUR ---
DAVID RN CLOSING NOTES Pt resting comfortably on his bed, not in any distress, A/O x1. Tolerating MV settings via trach. Controlled Afib on the monitor. IV line access on DELROY ML kept patent & intact w/ no s/sx of infection/infiltration noted. FC kept draining to BSB w/ yellowish UOP. Safety precaution kept in place at all times w/ bed in lowest & locked pos. Call light placed w/in reach. Will endorse to PM RN for SPENCER.
[2019-02-27 20:00] VITALS: BP 97/47
[2019-02-27] MEDS: ATORVASTATIN 10 MG TABLET GT SCH (21:13)
[2019-02-28] VITALS: BP 109/72
[2019-02-28] MEDS: MEROPENEM 500 MG in IV NS 0.9% 100 ML IV SCH ×2 (01:02→12:00)
[2019-02-28] MEDS: ALBUTEROL FS 2.5 MG/0.5 ML VIAL.NEB IH SCH ×4 (02:00→19:47)
[2019-02-28 04:00] VITALS: BP 134/64
[2019-02-28] MEDS: DILTIAZEM HCL 30 MG TABLET GT SCH ×3 (05:00→21:56)
--- NOTE | 2019-02-28 05:42 | NUR ---
RT PATIENT WAS RECEIVED ON CONTINUOUS VENT SUPPORT ON NOTED VENT SETTINGS.PATIENT STABLE T/O THE SHIFT. AIRWAY PATENT AND SECURED. WILL CONTINUE TO MONITOR. Addendum: 02/28/19 at 0542 by VARINDER SPARKS RT Amended: Links added.
[2019-02-28 06:56] LABS: BASOPHILS # (AUTO) 0.1 /CMM (0.0-0.2); BASOPHILS % (AUTO) 0.6 % (0.0-2.0); EOSINOPHILS % (AUTO) 7.2 % (0.0-6.0); HEMATOCRIT 26 % (39-51); HEMOGLOBIN 8.7 g/dL (13.5-17.5); LYMPHOCYTES # (AUTO) 1.3 /CMM (0.8-4.8); LYMPHOCYTES % (AUTO) 14.1 % (20.0-44.0); MEAN CORPUSCULAR HGB CONC 33 g/dl (31.0-36.0); MEAN CORPUSCULAR VOLUME 97 fL (80-96); MONOCYTES # (AUTO) 1.3 /CMM (0.1-1.30); MONOCYTES % (AUTO) 14.5 % (2.0-12.0); NEUTROPHILS # (AUTO) 5.7 /CMM (1.8-8.9); NEUTROPHILS % (AUTO) 63.6 % (43.0-81.0); PLATELET COUNT (AUTO) 323 /CMM (150-450); RED BLOOD CELL COUNT(AUTO) 2.69 MIL/uL (4.5-6.0)
--- NOTE | 2019-02-28 07:05 | NUR ---
DAVID RN INITIAL NOTES PT RECEIVED ON MECHANICAL VENT AND TOLERATING VENT SETTINGS WELL. NO SOB OR ACUTE SIGNS OF DISTRESS NOTED. BREATHING IS EVEN AND UNLABORED. PT NOTED TO BE SINUS ESTRELLA ON MONITOR WITH A CURRENT HR OF 56. F/C NOTED TO BE C/D/I AND DRAINING TO GRAVITY. RIGHT UPPER ARM MIDLINE NOTED TO BE PATENT AND INTACT. NO REDNESS OR SIGNS OF INFILTRATION NOTED. GTUBE NOTED TO BE PATENT AND INTACT. PLACEMENT VERIFIED VIA AUSCULTATION. PT TOLERATING TUBE FEEDINGS WELL. NO RESIDUALS ASPIRATED. BED IN LOW LOCKED POSITION, SIDE RAILS UP X3, CALL LIGHT WITHIN REACH. WILL CONTINUE TO MONITOR
[2019-02-28 07:14] LABS: CARBON DIOXIDE 24 mmol/L (21-32); CHLORIDE 109 mmol/L (98-107); CREATININE 2.1 mg/dL (0.6-1.3); GLUCOSE 115 mg/dL (74-106); POTASSIUM 4.1 mmol/L (3.5-5.1); SODIUM SERUM 144 mmol/L (136-145)
[2019-02-28 07:25] LABS: UREA NITROGEN, BLOOD 82 mg/dL (7-18)
[2019-02-28 08:00] VITALS: BP 147/49
[2019-02-28] MEDS: CARVEDILOL 12.5 MG TABLET GT SCH ×2 (09:00→16:20)
[2019-02-28] MEDS: MULTIVIT W/MINERALS 1 TAB TABLET PO SCH (09:19)
[2019-02-28] MEDS: QUETIAPINE FUMARATE 25 MG TABLET PO SCH ×2 (09:19→16:21)
[2019-02-28] MEDS: DOCUSATE SODIUM 100 MG CAPSULE PO SCH (09:19)
[2019-02-28] MEDS: DRONEDARONE HYDROCHLORIDE 400 MG TABLET GT SCH ×2 (09:19→16:21)
[2019-02-28] MEDS: ASCORBIC ACID 500 MG TABLET GT SCH (09:19)
[2019-02-28] MEDS: ZINC SULFATE 220 MG CAPSULE PO SCH (09:19)
[2019-02-28] MEDS: FERROUS SULFATE (325 MG) 325 MG/TAB TABLET GT SCH (09:19)
[2019-02-28] MEDS: LACTOBACILLUS RHAMNOSUS GG 1 EACH CAP.SPRINK PO SCH ×2 (09:19→16:21)
[2019-02-28] MEDS: LORATADINE 10 MG TABLET GT SCH (09:20)
[2019-02-28] MEDS: DOXAZOSIN MESYLATE (1 MG) 1 MG TABLET GT SCH (09:21)
[2019-02-28] MEDS: LIOTHYRONINE SODIUM (5 MCG/TA 5 MCG TABLET GT SCH ×2 (09:22→16:21)
[2019-02-28] MEDS: FINASTERIDE (5 MG) 5 MG TABLET GT SCH (09:22)
[2019-02-28] MEDS: CHLORHEXIDINE GLUCONATE 15 ML UDC MM SCH (09:22)
[2019-02-28] MEDS: FOLIC ACID 1 MG TABLET GT SCH (09:23)
[2019-02-28] MEDS: LEVETIRACETAM SOL (5 ML) 100 MG/ML UDC GT SCH ×2 (09:23→21:55)
[2019-02-28] MEDS: ACETAMINOPHEN 325 MG TABLET PO SCH (09:23)
[2019-02-28] MEDS: ESOMEPRAZOLE MAGNESIUM 40 MG SUSPDR.PKT GT SCH (11:59)
[2019-02-28 12:00] VITALS: BP_SYST 133; BP_DIAS 49; BP_DIAS 53
[2019-02-28 12:44] LABS: ABG BASE EXCESS -5.2 mmol/L; ABG OXYGEN SATURATION 96.9 % (92.0-98.5); ABG PCO2 35.2 mmHg (35.0-45.0); ABG PH 7.362 (7.350-7.450); ABG PO2 101.2 mmHg (75.0-100.0); COHb 0.1 % (0.5-1.5); MetHb 0.3 % (0.0-1.5); O2Hb 96.5 % (94.0-97.0); SITE, ABG Right Radial
[2019-02-28 16:00] VITALS: BP_SYST 119; BP_SYST 91; BP_DIAS 43
[2019-02-28] MEDS: NEPRO 1,000 ML BOTTLE GT PRN (16:19)
[2019-02-28] MEDS: VANCOMYCIN 1 GM in IV D5W 250 ML IV SCH (16:34)
--- NOTE | 2019-02-28 18:45 | NUR ---
BRIDGE MECHANIC CLOSING NOTES PT REMAINS STABLE. ALL DUE MEDS GIVEN. NEEDS ANTICIPATED FRO AND MET. HE WAS REPOSITIONED AND TURNED PER PROTOCOL. VSS REMAINED STABLE THROUGHOUT SHIFT. TRACHEOSTOMY CARE AND PRN SUCTION RENDERED. WOUND CARE RENDERED. HE CONTINUES TOLERATING TUBE FEEDINGS WELL. SAFETY MEASURES REMAIN IN PLACE. WILL ENCORE TO NIGHTSHIFT RN FOR SPENCER
--- NOTE | 2019-02-28 19:25 | NUR ---
DISHING MACHINE OPERATOR NOTE PATIENT IS RESTING WITH HOB ELEVATED, AOX1, TRACH TO VENT ON SETTINGS ORDERED, SKIN KEPT CLEAN AND DRY, DELROY MIDLINE, NEPRO AT 45ML/HR, PATENT FLUSHING WELL, CURRENTLY RECEIVING HD, NO RESTRAINTS CURRENTLY ON, SAFETY MAINTAINED, BED IN LOW LOCKED POSITION, CALL LIGHT WITHIN REACH, WILL CONTINUE TO MONITOR FOR CHANGES.
[2019-02-28 20:00] VITALS: BP 139/63
[2019-02-28] MEDS: ATORVASTATIN 10 MG TABLET GT SCH (21:55)
[2019-03-01] VITALS: BP 115/55
[2019-03-01] MEDS ORDERED: MEROPENEM 500 MG VIAL IV ONE (00:21)
[2019-03-01] MEDS: MEROPENEM 500 MG in IV NS 0.9% 100 ML IV SCH ×2 (00:28→13:27)
[2019-03-01] MEDS: ALBUTEROL FS 2.5 MG/0.5 ML VIAL.NEB IH SCH ×4 (02:03→19:28)
[2019-03-01 04:00] VITALS: BP 136/58
[2019-03-01] MEDS: DILTIAZEM HCL 30 MG TABLET GT SCH ×2 (04:36→13:00)
[2019-03-01 07:24] LABS: BASOPHILS % (AUTO) 0.6 % (0.0-2.0); EOSINOPHILS % (AUTO) 8.4 % (0.0-6.0); HEMATOCRIT 23 % (39-51); HEMOGLOBIN 7.7 g/dL (13.5-17.5); LYMPHOCYTES % (AUTO) 13.5 % (20.0-44.0); MEAN CORPUSCULAR HGB CONC 33 g/dl (31.0-36.0); MEAN CORPUSCULAR VOLUME 97 fL (80-96); MONOCYTES # (AUTO) 1.2 /CMM (0.1-1.30); MONOCYTES % (AUTO) 15.9 % (2.0-12.0); NEUTROPHILS # (AUTO) 4.8 /CMM (1.8-8.9); NEUTROPHILS % (AUTO) 61.6 % (43.0-81.0); PLATELET COUNT (AUTO) 272 /CMM (150-450); WHITE BLOOD COUNT (AUTO) 7.8 K/uL (4.3-11.0)
--- NOTE | 2019-03-01 07:30 | NUR ---
RN OPENING NOTES PT IS ASLEEP IN BED IN SEMI RIVAS POSITION. NEPRO RUNNING AT 45 MLS/HR TOLERATING WELL. PT HAS A DELROY MIDLINE. PT HAS A FUENTES CATHETER DRAINING TO GRAVITY. BED IS LOCKED AN IN LOWEST POSITION WILL CONTINUE TO MONITOR. PT IS TOLERATING VENT SHOWS NO SIGNS OF SOB OR PAIN AT THIS PRESENT MOMENT WILL CONTINUE TO MONITOR.
[2019-03-01 07:35] LABS: CARBON DIOXIDE 24 mmol/L (21-32); CHLORIDE 111 mmol/L (98-107); CREATININE 1.8 mg/dL (0.6-1.3); GLUCOSE 109 mg/dL (74-106); SODIUM SERUM 146 mmol/L (136-145); UREA NITROGEN, BLOOD 73 mg/dL (7-18)
[2019-03-01 08:00] VITALS: BP 130/64
[2019-03-01] MEDS: CARVEDILOL 12.5 MG TABLET GT SCH ×2 (09:00→16:22)
[2019-03-01] MEDS: ESOMEPRAZOLE MAGNESIUM 40 MG SUSPDR.PKT GT SCH (09:00)
[2019-03-01] MEDS ORDERED: NEXIUM 40 MG VIAL IV SCH (09:00)
[2019-03-01] MEDS: CHLORHEXIDINE GLUCONATE 15 ML UDC MM SCH (09:23)
[2019-03-01] MEDS: LORATADINE 10 MG TABLET GT SCH (09:23)
[2019-03-01] MEDS: ACETAMINOPHEN 325 MG TABLET PO SCH (09:23)
[2019-03-01] MEDS: ASCORBIC ACID 500 MG TABLET GT SCH (09:24)
[2019-03-01] MEDS: FINASTERIDE (5 MG) 5 MG TABLET GT SCH (09:24)
[2019-03-01] MEDS: MULTIVIT W/MINERALS 1 TAB TABLET PO SCH (09:24)
[2019-03-01] MEDS: LEVETIRACETAM SOL (5 ML) 100 MG/ML UDC GT SCH (09:24)
[2019-03-01] MEDS: DRONEDARONE HYDROCHLORIDE 400 MG TABLET GT SCH ×2 (09:24→16:22)
[2019-03-01] MEDS: ZINC SULFATE 220 MG CAPSULE PO SCH (09:25)
[2019-03-01] MEDS: FERROUS SULFATE (325 MG) 325 MG/TAB TABLET GT SCH (09:25)
[2019-03-01] MEDS: DOXAZOSIN MESYLATE (1 MG) 1 MG TABLET GT SCH (09:25)
[2019-03-01] MEDS: LACTOBACILLUS RHAMNOSUS GG 1 EACH CAP.SPRINK PO SCH ×2 (09:25→16:22)
[2019-03-01] MEDS: DOCUSATE SODIUM 100 MG CAPSULE PO SCH (09:25)
[2019-03-01] MEDS: QUETIAPINE FUMARATE 25 MG TABLET PO SCH ×2 (09:25→16:22)
[2019-03-01] MEDS: FOLIC ACID 1 MG TABLET GT SCH (09:25)
[2019-03-01] MEDS: LIOTHYRONINE SODIUM (5 MCG/TA 5 MCG TABLET GT SCH ×2 (09:25→16:22)
[2019-03-01 09:58] LABS: BAND % (MANUAL) 8 % (0.0-5.0); EOSINOPHILS % (MANUAL) 1 % (0-4); LYMPHOCYTES % (MANUAL) 13 % (16-48); MONOCYTES % (MANUAL) 25 % (0-11.0); NEUTROPHILS % (MANUAL) 53 (42-76)
[2019-03-01 12:00] VITALS: BP 126/55
[2019-03-01] MEDS ORDERED: RXVAN XX (12:26)
[2019-03-01] MEDS ORDERED: MERO500V3 IV (12:26)
[2019-03-01] MEDS: VANCOMYCIN 1 GM in IV D5W 250 ML IV SCH (15:05)
[2019-03-01 16:00] VITALS: BP 114/48
[2019-03-01] MEDS: NEPRO 1,000 ML BOTTLE GT PRN (16:18)
--- NOTE | 2019-03-01 18:44 | NUR ---
RT END OF THE SHIFT REPORT, PT. 88 Y OLD MALE PT. RECEIVED @ 0700 AM TRACH'D PORTEX # 8 [facility]. VENT WITH NOTED AC MODE. NO VENT CHANGES DONE T/O DAY, TX'S GIVEN INLINE NO ADVERSE REACTION NOTED. REMAIN STABLE. PT SUX'D MINIMAL [place]O SECRETIONS. B/S RHONCHI/ RALES BILATERALLY, EQUAL CHEST RISE NOTED. VENT IS PLUGGED INTO RED OUTLET. ALARMS ARE SET AND FUNCTIONAL. HME CHANGED, AMBU BAG AT BEDSIDE. TRACH CARE DONE, INNER CANNULA CHANGED EXTRA TRACH AT THE BEDSIDE, WILL CONTINUE TO MONITOR. REPORT WILL PASS TO PM SHIFT. Addendum: 03/01/19 at 1846 by OFELIA BARRIOS RT Amended: Links added.
--- NOTE | 2019-03-01 19:13 | NUR ---
REPORT CALLED TO ISMAEL FUNK AND GAVE REPORT TO COCONUT COOKER LILIAN. STILL AWAITING ENVIRONMENTAL SERVICES AIDE. CHARGE NURSE SOON STATED ENVIRONMENTAL SERVICES AIDE TIME WAS CHANGED TO 1930. PT TOLERATING VENT SETTINGS. PAPERWORK AND EXITCARE PACKET DONE. BED IS LOCKED AND IN LOWEST POSITION WITH SUCTION AT BEDSIDE. PT O2 SATURATION AT 98%. WILL ENDORSE CONTINATION OF CARE TO FOOD SELECTOR RN.
[2019-03-01 20:00] VITALS: BP 146/104
--- NOTE | 2019-03-01 20:00 | NUR ---
SQUIRREL MAN NOTES PATIENT DISCHARGED TO [facility]. ALL APPROPRIATE DISCHARGE PAPERS GIVEN.
[2019-03-02] MEDS ORDERED: IBUPROFEN 600 MG TABLET PO ONE (15:49)
== END 2019-03-01 20:00 | DRG 207 ==
LOC: ER 11:06 → MED 13:49 → ICU 19:42 → TELE-TD 02-26 17:30 → TELE1 02-28 17:32
PROVIDERS: ADMIT Family Medicine; ATTEND Family Medicine
PROC: 5A1955Z Respiratory Ventilation, Greater than 96 Consecutive Hours (ICD-10-PCS; principal; 2019-02-23)
PROC: 0W9B3ZZ Drainage of Left Pleural Cavity, Percutaneous Approach (ICD-10-PCS; 2019-02-24)
DX: J69.0 Pneumonitis due to inhalation of food and vomit (principal); N17.0 Acute kidney failure with tubular necrosis; E43 Unspecified severe protein-calorie malnutrition; J96.01 Acute respiratory failure with hypoxia; J98.11 Atelectasis; Z99.11 Dependence on respirator [ventilator] status; G93.49 Other encephalopathy; M46.26 Osteomyelitis of vertebra, lumbar region; J91.8 Pleural effusion in other conditions classified elsewhere; J44.0 Chronic obstructive pulmonary disease with (acute) lower respiratory infection; E03.9 Hypothyroidism, unspecified; D63.8 Anemia in other chronic diseases classified elsewhere; Z79.4 Long term (current) use of insulin; E11.22 Type 2 diabetes mellitus with diabetic chronic kidney disease; Z86.73 Personal history of transient ischemic attack (TIA), and cerebral infarction without residual deficits; Z87.440 Personal history of urinary (tract) infections; Z93.1 Gastrostomy status; I48.91 Unspecified atrial fibrillation; D72.829 Elevated white blood cell count, unspecified; E88.09 Other disorders of plasma-protein metabolism, not elsewhere classified; Z93.0 Tracheostomy status; N40.0 Benign prostatic hyperplasia without lower urinary tract symptoms; N18.9 Chronic kidney disease, unspecified; Z68.24 Body mass index [BMI] 24.0-24.9, adult; E11.69 Type 2 diabetes mellitus with other specified complication; M46.46 Discitis, unspecified, lumbar region; Z88.0 Allergy status to penicillin; I12.9 Hypertensive chronic kidney disease with stage 1 through stage 4 chronic kidney disease, or unspecified chronic kidney disease; E87.5 Hyperkalemia; K21.9 Gastro-esophageal reflux disease without esophagitis
CPT/HCPCS: 31720; 36415; 36600; 71045-TC; 71250-TC; 76942-TC; 80048-TC; 80053-TC; 80061-TC; 80076-TC; 80202-TC; 81000-TC; 82550-TC; 82570-TC; 82803-TC; 82962-TC; 83605-TC; 83615-TC; 83735-TC; 83880; 83970; 84100-TC; 84155; 84155-TC; 84165; 84300-TC; 84484-TC; 85025-TC; 85730-TC; 87040-TC; 87070-TC; 87075-TC; 87081-TC; 87086-TC; 87102-TC; 87116; 87206; 88112-TC; 88305-TC; 88312-TC; 89051-TC; 94002-TC; 94003-TC; 94640-TC; 94664-TC; 94760-TC; 99082-TC; A4216; A4217; A4623; A6253; A7526; G0378; J0878; J1953; J2185; J3370; J3490; J7030; J7040; J7050; J7060